=== PATIENT | female | born 1995 | race Hispanic/Latino ===

== ENCOUNTER 2024-06-18 09:51 | Inpatient (IN) | payer SELFPAY ==
[2024-06-18 11:12] VITALS: BP 96/63; TEMP 98
[2024-06-18] MEDS ORDERED: Promethazine HCl 25 MG/ML VIAL IM PRN (11:33)
[2024-06-18] MEDS ORDERED: Methylergonovine 0.2 MG/ML VIAL IM PRN (11:33)
[2024-06-18] MEDS ORDERED: Ondansetron PF 4 MG/2 ML Vial IVP PRN (11:33)
[2024-06-18 11:35] VITALS: BMI 28.3
[2024-06-18] MEDS ORDERED: Ibuprofen 800 MG TAB PO PRN (11:36)
[2024-06-18 13:16] LABS: #Eosinophils 0.03 10x3/uL (0.0-0.5); #Monocytes 0.43 10x3/uL (0.0-1.1); #Neutrophils 6.42 10x3/uL (1.5-8.4); %Eosinophils 0.3 % (0.0-6.0); %Lymphocytes 22.4 % (18.0-47.0); %Monocytes 4.8 % (0.0-10.0); %Neutrophils 72.2 % (40.0-75.0); Hematocrit 24.6 % (34.9-44.5); Hemoglobin 8.6 g/dL (12.0-15.5); Mean Corpuscular Hemoglobin 29.1 pg (27.0-33.0); Mean Corpuscular Volume 83.1 fL (81.6-98.3); Mean Platelet Volume 10.6 fL (7.4-10.4); Platelet Count 158 10x3/uL (150-450); RBC Distribution Width 14.2 % (11.5-14.5); Red Blood Cell (RBC) Count 2.96 10x6/uL (3.90-5.03); White Blood Cell (WBC) Count 8.9 10x3/uL (3.5-10.5)
== END 2024-06-18 14:35 | disposition home or self-care (01) | DRG 779 ==
LOC: CSHTELE 10:45
PROVIDERS: ADMIT Obstetrics & Gynecology; ATTEND Obstetrics & Gynecology
PROC: 30233N1 Transfusion of Nonautologous Red Blood Cells into Peripheral Vein, Percutaneous Approach (ICD-10-PCS; principal; 2024-06-18)
DX: O03.9 Complete or unspecified spontaneous abortion without complication (principal); D50.9 Iron deficiency anemia, unspecified
CPT/HCPCS: 36415; 84702